=== PATIENT | male | born 1950 | race Caucasian/White ===

== ENCOUNTER 2021-03-24 18:21 | Emergency (ER) | payer OTHER ==
[~2021-03-24] VITALS: Ht 188 cm; Wt 108.0 kg
[2021-03-24] MEDS ORDERED: NORVASC10 MG PO (18:39)
[2021-03-24] MEDS ORDERED: TIZANIDINE HCL4 M1 PO (18:39)
[2021-03-24 19:19] LABS: ABSOLUTE EOSINOPHILS 0.1 thou/uL (0.0-0.7); ABSOLUTE LYMPHOCYTES 2.1 thou/uL (0.8-5.3); ABSOLUTE MONOCYTES 0.8 thou/uL (0.0-1.2); ABSOLUTE NEUTROPHILS 3.5 thou/uL (1.6-8.1); BASOPHILS 0.5 %; EOSINOPHILS 1.7 %; HEMATOCRIT 46.9 % (42.0-52.0); LYMPHOCYTES 32.5 %; MCH 31.9 pg (26.0-34.0); MCHC 34.2 g/dL (28.0-37.0); MCV 93.3 fL (80.0-100.0); MONOCYTES 12.5 %; MPV 8.8 fl. (7.2-11.1); NUCLEATED RBCS 0 /100WBC; PLATELET COUNT* 184 thou/uL (150-400); POLYS 52.8 %; RBC 5.03 mil/uL (4.50-6.00); RDW-CV 14.6 % (10.5-14.5); WBC 6.6 thou/uL (4.0-11.0)
[2021-03-24 19:27] LABS: CALCIUM 8.9 mg/dL (8.5-10.1); CREATININE 0.8 mg/dL (0.6-1.3); POTASSIUM 3.9 mmol/L (3.5-5.1)
[2021-03-24 19:38] LABS: TOTAL BILIRUBIN 1.3 mg/dL (<0.1-1.0); TOTAL PROTEIN 7.6 g/dL (6.4-8.2)
[2021-03-24] MEDS ORDERED: ASA81BEC PO (20:19)
[2021-03-24] MEDS ORDERED: AMBIEN5 MG PO (20:20)
[2021-03-24] MEDS ORDERED: FLEXERIL PO (20:32)
[2021-03-24 20:53] VITALS: BP 138/68
--- NOTE | 2021-03-25 09:02 | EKG ---
[place] [address] ELECTROCARDIOGRAM REPORT Name: BRAYDEN MARTINEZ Room: [facility]#: [id number] Admission: 03/24/21 Attend Phys: Discharge: 03/24/21 Date of : 54 Date of Service: 03/24/211913 Report #: [id number] THIS REPORT FOR: //name// [facility] ED Test Date: 2021-03-24 Test Time: 19:14:02 Pat Name: BRAYDEN MARTINEZ Department: Room: Gender: Physician Aide: : 1950 Requested By: Erin Hernandes Order Number: [id number] MD: Brayden Yañez Measurements Intervals [place] Rate: 89 P: [place]: QRS: -60 QRSD: 98 T: -17 QT: 409 QTc: 498 Interpretive Statements Atrial fibrillation Ventricular premature complex Inferior infarct, age indeterminate Consider anterior infarct Prolonged QT interval No previous ECG available for comparison Electronically Signed On 03-25-2021 9:02:24 CDT by Brayden Yañez [email or web address] <ELECTRONICALLY SIGNED> By: Brayden Yañez MD, [facility] 03/25/21901 13 13 Brayden Yañez MD, [facility] /EPI
== END 2021-03-24 20:53 | disposition home or self-care (01) ==
LOC: M.ERS 18:21
PROVIDERS: Nurse Practitioner Family
DX: R60.0 Localized edema (principal); M62.830 Muscle spasm of back; I10 Essential (primary) hypertension; I48.91 Unspecified atrial fibrillation; Z88.2 Allergy status to sulfonamides